=== PATIENT | male | born 1960 | race Caucasian/White ===

== ENCOUNTER 2020-07-25 12:31 | Outpatient (CLI) | payer MEDICARE, SELFPAY ==
--- NOTE | 2020-07-26 13:46 | WPDPFTINT ---
PFT Interpretation This is a pulmonary function test with pre and post-bronchodilator spirometry, plethysmography and diffusing capacity. The test was performed and results interpreted in accordance with the 2019 and 2005 ATS/ERS Task Force guidelines respectively using the Jaswinder/Aleksander reference equations. Findings: Spirometry: There is decreased maximal expiratory airflow at low lung volumes with a concave expiratory flow tracing. The pre-bronchodilator FVC is 3.56 L, 82% predicted. The pre-bronchodilator FEV1 is 2.33 L, 75% predicted. The FEV1:FVC ratio is 66%. The post-bronchodilator FVC is 3.25 L, representing a 9% decrease. The post-bronchodilator FEV1 is 2.50 L, representing a 8% increase. Plethysmography: The total lung capacity is 5.11 L, 82% predicted. The functional residual capacity is 2.17 L, 71% predicted. The residual volume is 1.55 L, 70% predicted. Diffusing capacity: The absolute diffusing capacity is 17.4, 67% predicted. The diffusing capacity corrected for alveolar volume is 3.95, 102% predicted. Impression: There is a mild obstructive abnormality without significant improvement after inhaling a single dose of albuterol. there is a reduction in the residual volume and functional residual capacity with a normal total lung capacity. This is an abnormal but nonspecific lung volume pattern. The absolute diffusing capacity is mildly decreased but normalizes when corrected for alveolar volume. There are no prior studies for comparison.
== END 2020-07-25 12:32 | disposition home or self-care (01) ==
LOC: ANHPFT 12:34
PROVIDERS: PCP Family Medicine; Visit Provider Family Medicine
DX: R06.00 Dyspnea, unspecified (principal); F17.200 Nicotine dependence, unspecified, uncomplicated
CPT/HCPCS: 94060; 94726; 94729

== ENCOUNTER 2021-11-18 01:01 | Day surgery (SDC) | payer MEDICARE, SELFPAY ==
[2021-11-03 13:16] VITALS: BMI 32.0
--- NOTE | 2021-11-17 13:23 | PM.HPGS ---
History of Present Illness History of Present Illness Consent: Risks, benefits, and alternatives have been discussed and questions answered. Patient agrees to proceed with procedure. Chief complaint: hx of colon polyps Narrative: Ren Lees is a 61 year old male referred for colon cancer screening. He has had polyp removed in the past. Review of Systems Review of Systems: All systems reviewed & are unremarkable except as noted in HPI and below PMFSH Past Medical History Medical History Anxiety (~2018) Chronic low back pain CKD (chronic kidney disease) stage 3, GFR 30-59 ml/min COPD (chronic obstructive pulmonary disease) Depression Dyslipidemia Essential (primary) hypertension Fracture of malleoli of both ankles (~1998) Genital warts History of colon polyps Insomnia Mandible fracture (~1975) Moderate episode of recurrent major depressive disorder (~09/2018) Vitamin D deficiency Surgical History Surgical History History of ankle surgery (~1997) left ankle History of mandibular surgery 1970s History of rotator cuff surgery 2003 - Left, bicep tendon removal History of surgery on right wrist - ORIF of wrist fracture History of tracheostomy 1975 Hx of lumbosacral spine surgery 2006 - laminectomy Hx of spinal fusion (~11/2007) L5-S1 Hx of tonsillectomy Family History Family History Mother Hypertension Father Family history of malignant neoplasm of esophagus Other Family history of cardiovascular disease Social History Social History Smoking packs per day: 1.5 Smoking cigarettes per day: 30.0 Years smoked: 40 Smoking pack-years: 60.00 Smoking status: Current every day smoker Tobacco type: cigarettes Second hand tobacco smoke exposure: Yes Additional smoking assessment comments: consumes 1.5 packs of cigarettes daily Alcohol intake: current Drinks per week: 20 Alcohol use details: consumes 6 beers daily Substance use: never Substance use type: does not use Living arrangements: alone Additional occupation/education comments: Disability Gender identity (if verbalized by the patient): Male Spiritual care concerns: No Meds Home Medications and Allergies Home Medications Medication Instructions Recorded Confirmed Type aspirin 81 mg tablet,delayed 81 mg PO DAILY 10/25/19 11/18/21 History release citalopram 40 mg tablet 40 mg PO DAILY 10/25/19 11/18/21 History mirtazapine 30 mg tablet 45 mg PO DAILY 10/25/19 11/18/21 History multivitamin 1 tablet PO DAILY 04/08/20 11/18/21 History clonazepam 0.5 mg tablet 0.5 mg PO DAILY tablet 04/09/21 11/18/21 History lisinopril 10 1 tablet PO DAILY #90 tablet 09/10/21 11/18/21 Rx mg-hydrochlorothiazide 12.5 mg tablet cholecalciferol (vitamin D3) 25 75 mcg PO DAILY cap 10/15/21 11/18/21 History mcg (1,000 unit) capsule fluticasone 250 mcg-salmeterol 50 1 inh INHALATION BID #60 ea 10/15/21 11/18/21 Rx mcg/dose blistr powdr for inhalation trazodone 50 mg tablet 100 mg PO QHS tablet 10/15/21 11/18/21 History gemfibrozil 600 mg tablet 600 mg PO BID #180 tablet 11/09/21 11/18/21 Rx simvastatin 40 mg tablet 40 mg PO QHS #90 tablet 11/09/21 11/18/21 Rx Allergies Allergy/AdvReac Type Severity Reaction Status Date / Time No Known Allergies Allergy Verified 11/18/21 08:07 Exam Resp: Auscultation: clear to auscultation bilaterally Cardio: Rate: regular rate Rhythm: regular rhythm GI: GI Palp: Yes Soft to palpation and No Tenderness to palpation present (GI) Assessment and Plan Assessment and plan (1) Colon cancer screening: Code(s): Z12.11 - Encounter for screening for malignant neoplasm of colon Status: Acute Assessment and Plan: Colonoscopy w
[2021-11-18 08:00] VITALS: BP 147/68; PULSE 102; RESP 20; TEMP 36.3; O2SAT 100; BMI 32.1
[2021-11-18] MEDS: LACTATED RINGERS 1,000 ML 150 ML IV CONT (08:21)
--- NOTE | 2021-11-18 08:27 | WPDANESEPPF ---
Anes - Initial Pre Proc Eval Procedure: Operation Date: 11/18/21 09:30 Proposed Procedures p Screening Colonoscopy - Nader Villaseñor MD Date/Time: 11/18/21 08:27 Surgeon: Nader Villaseñor MD Pre Op Diagnosis: hx of colon polyps Patient Data Age: 61 Gender: M Height: 1.73 m Weight: 95.9 kg Last Vital Signs Temp 36.3 C L 11/18/21 08:00 Pulse 102 H 11/18/21 08:00 Resp 20 11/18/21 08:00 BP 147/68 H 11/18/21 08:00 Pulse Ox 100 11/18/21 08:00 Allergies Allergy/AdvReac Type Severity Reaction Status Date / Time No Known Allergies Allergy Verified 11/18/21 08:07 Home Medications Medication Instructions Recorded Confirmed Type aspirin 81 mg tablet,delayed 81 mg PO DAILY 10/25/19 11/18/21 History release citalopram 40 mg tablet 40 mg PO DAILY 10/25/19 11/18/21 History mirtazapine 30 mg tablet 45 mg PO DAILY 10/25/19 11/18/21 History multivitamin 1 tablet PO DAILY 04/08/20 11/18/21 History clonazepam 0.5 mg tablet 0.5 mg PO DAILY tablet 04/09/21 11/18/21 History lisinopril 10 1 tablet PO DAILY #90 tablet 09/10/21 11/18/21 Rx mg-hydrochlorothiazide 12.5 mg tablet cholecalciferol (vitamin D3) 25 75 mcg PO DAILY cap 10/15/21 11/18/21 History mcg (1,000 unit) capsule fluticasone 250 mcg-salmeterol 50 1 inh INHALATION BID #60 ea 10/15/21 11/18/21 Rx mcg/dose blistr powdr for inhalation trazodone 50 mg tablet 100 mg PO QHS tablet 10/15/21 11/18/21 History gemfibrozil 600 mg tablet 600 mg PO BID #180 tablet 11/09/21 11/18/21 Rx simvastatin 40 mg tablet 40 mg PO QHS #90 tablet 11/09/21 11/18/21 Rx Patient hx anesthesia problems: none Family hx anesthesia problems: none Results Review: All pre-operative results and documents have been reviewed as part of the pre-operative evaluation. [facility] Past Medical History Medical History Anxiety (~2018) Chronic low back pain CKD (chronic kidney disease) stage 3, GFR 30-59 ml/min COPD (chronic obstructive pulmonary disease) Depression Dyslipidemia Essential (primary) hypertension Fracture of malleoli of both ankles (~1998) Genital warts History of colon polyps Insomnia Mandible fracture (~1975) Moderate episode of recurrent major depressive disorder (~09/2018) Vitamin D deficiency Surgical History Surgical History History of ankle surgery (~1997) left ankle History of mandibular surgery 1970s History of rotator cuff surgery 2003 - Left, bicep tendon removal History of surgery on right wrist - ORIF of wrist fracture History of tracheostomy 1975 Hx of lumbosacral spine surgery 2006 - laminectomy Hx of spinal fusion (~11/2007) L5-S1 Hx of tonsillectomy Family History Family History Mother Hypertension Father Family history of malignant neoplasm of esophagus Other Family history of cardiovascular disease Social History Social History Smoking packs per day: 1.5 Smoking cigarettes per day: 30.0 Years smoked: 40 Smoking pack-years: 60.00 Smoking status: Current every day smoker Tobacco type: cigarettes Second hand tobacco smoke exposure: Yes Additional smoking assessment comments: consumes 1.5 packs of cigarettes daily Alcohol intake: current Drinks per week: 20 Alcohol use details: consumes 6 beers daily Substance use: never Substance use type: does not use Living arrangements: alone Additional occupation/education comments: Disability Gender identity (if verbalized by the patient): Male Spiritual care concerns: No Anes - Eval Final PreProcedure Day of Procedure 11/18/21 08:27 Patient weight: obese Heart: regular rate and rhythm Lungs: clear to auscultation and normal air movement Airway: Mallampati scale class II Neurological: jose
[2021-11-18 09:22] VITALS: BP 94/41; PULSE 93; RESP 16; O2SAT 95
[2021-11-18 09:32] VITALS: BP 103/28; PULSE 81; RESP 15; O2SAT 98
--- NOTE | 2021-11-18 09:37 | SUR.OPER ---
Dr. Villaseñor aware that Descending colon polyp was not retrieved, no new orders given.
== END 2021-11-18 09:58 | disposition home or self-care (01) ==
PROVIDERS: PCP Family Medicine; Visit Provider Internal Medicine Gastroenterology
PROC: 0DJD8ZZ Inspection of Lower Intestinal Tract, Via Natural or Artificial Opening Endoscopic (ICD-10-PCS; CPT 45378; principal; 2021-11-18 09:30)
DX: Z12.11 Encounter for screening for malignant neoplasm of colon (principal); D12.3 Benign neoplasm of transverse colon; K63.5 Polyp of colon; I12.9 Hypertensive chronic kidney disease with stage 1 through stage 4 chronic kidney disease, or unspecified chronic kidney disease; N18.30 Chronic kidney disease, stage 3 unspecified; J44.9 Chronic obstructive pulmonary disease, unspecified; E78.5 Hyperlipidemia, unspecified; E55.9 Vitamin D deficiency, unspecified; K64.8 Other hemorrhoids; M54.50 Low back pain, unspecified; G89.29 Other chronic pain; F41.9 Anxiety disorder, unspecified; F32.A Depression, unspecified; F17.210 Nicotine dependence, cigarettes, uncomplicated
CPT/HCPCS: 45385; 45380; 88305; J2704; J7120

== ENCOUNTER 2022-11-23 15:06 | Outpatient (CLI) | payer MEDICARE, SELFPAY ==
[2022-11-24 09:29] LABS: Kit Draw Collected
== END 2022-11-23 15:07 | disposition home or self-care (01) ==
LOC: ANHGOSHLAB 15:08
PROVIDERS: PCP Family Medicine; Visit Provider Nurse Practitioner Family
DX: Z00.00 Encounter for general adult medical examination without abnormal findings (principal); I10 Essential (primary) hypertension
CPT/HCPCS: 36415

== ENCOUNTER → 2022-12-10 13:38 | Outpatient (CLI) | payer MEDICARE, SELFPAY ==
--- NOTE | ~2022-12-10 | CT_ITS ---
CT Scan of the Chest without Contrast: Clinical Indication: Lung cancer screening, smoking history Technique: Contiguous sections were acquired throughout the chest without intravenous contrast. Dose reduction technique was used on this scan by utilizing automated exposure control and iterative recon struction technique. The dose-length product (DLP) was 196.80 mGy-cm. Findings: There is no evidence of any significant mediastinal, hilar or axillary lymphadenopathy. Extensive cor onary artery calcifications are present. There is no evidence of pleural or pericardial effusion. 4 mm right lower lobe pulmonary nodule present (axial image 65). Images through the upper abdomen reveal no abnormalities. Impression: Lung RADS 2: Benign appearance. 12 month follow-up screening CT advised. Reviewed, dictated and finalized at location . Impression: Lung RADS 2: Benign appearance. 12 month follow-up screening CT advised.
== END ==
PROVIDERS: PCP Family Medicine; Visit Provider Nurse Practitioner Family
DX: Z12.2 Encounter for screening for malignant neoplasm of respiratory organs (principal); F17.210 Nicotine dependence, cigarettes, uncomplicated
CPT/HCPCS: 71271

== ENCOUNTER 2023-06-01 15:35 | Outpatient (CLI) | payer MEDICARE, SELFPAY ==
[2023-06-01 19:19] LABS: Basophils Absolute Auto 0.1 K/mm3 (0.0-0.1); Basophils Percent Auto 0.8 % (0.2-1.2); Eosinophils Absolute Auto 0.2 K/mm3 (0-0.3); Eosinophils Percent Auto 2.6 % (0-4.4); Hematocrit 41.6 % (42.0-52.0); Hemoglobin 14.2 g/dL (14.0-18.0); Immature Granulocyte Absolute 0.03 K/mm3 (0.00-0.031); Immature Granulocyte Percent A 0.3 % (0-0.5); Lymphocytes Absolute Auto 2.52 K/mm3 (0.9-3.2); Lymphocytes Percent Auto 27.6 % (18.3-44.2); Mean Corpuscular HGB Conc 34.1 g/dl (32-36); Mean Corpuscular Volume 96.7 fl (80-100); Monocytes Absolute Auto 0.8 K/mm3 (0.1-0.6); Monocytes Percent Auto 8.4 % (2.6-8.5); Neutrophils Absolute Auto 5.5 K/mm3 (1.3-6.7); Neutrophils Percent Auto 60.3 % (45.5-73.1); Platelet Count Result 283 k/mm3 (150-375); Red Cell Distribution Width 12.2 % (11.5-14.5); White Blood Count 9.1 K/mm3 (4.5-10.0)
[2023-06-01 19:30] LABS: Appearance Urine Cloudy (Clear); Bacteria Urine 4+ /hpf; Bilirubin Urine Negative (Negative); Blood Urine Negative (Negative); Color Urine Yellow (Yellow); Glucose Urine UA Negative (Negative); Ketones Urine Negative (Negative); Leukocyte Esterase Ur 3+ LEU/UL (Negative); Need Manual Microscopic Reviewed; Nitrate Urine Positive (Negative); Non Pathogenic Casts 0-2; Protein Urine Negative (Negative); RBC Urine 0-2 /hpf (0-2); Specific Grav Ur 1.011 (1.001-1.035); Squamous Epithelial Cell Urine None seen /hpf (Few); Urobilinogen Urine 0.2 mg/dL (<2.0); WBC Urine 51-100 /hpf; pH Urine 6.5 (5.0-9.0)
[2023-06-01 19:33] LABS: Add Urine Microscopic? YES
[2023-06-01 19:55] LABS: Vitamin D 25 Hydroxy 93.3 ng/mL
[2023-06-01 20:23] LABS: Alanine Aminotransferase 19 U/L (6-50); Alkaline Phosphatase 97 U/L (38-126); Anion Gap 11 mmol/L (8-16); Aspartate Amino Transferase 37 U/L (17-59); Bilirubin,Total 0.6 mg/dL (0.2-1.3); Blood Urea Nitrogen 23 mg/dL (9-20); Calcium 10.7 mg/dL (8.4-10.2); Carbon Dioxide 28 mmol/L (22-30); Chloride 97 mmol/L (98-107); Cholesterol 160 mg/dL (0-200); Estimated Glomerular Filt Rate 41; Glucose 107 mg/dL (65-110); HDL Direct 45 mg/dL; Potassium 4.8 mmol/L (3.4-5.0); Sodium 136 mmol/L (137-145); Triglycerides 114 mg/dL (<150)
[2023-06-01 20:37] LABS: LDL Cholesterol Direct 85 mg/dL
[2023-06-01 21:02] LABS: Prostate Specific Antigen 0.6 ng/mL (< OR = 4.0)
== END 2023-06-01 15:36 | disposition home or self-care (01) ==
LOC: ANHGOSHLAB 15:36
PROVIDERS: PCP Family Medicine; Visit Provider Family Medicine
DX: Z12.5 Encounter for screening for malignant neoplasm of prostate (principal); E55.9 Vitamin D deficiency, unspecified; E78.5 Hyperlipidemia, unspecified; E53.8 Deficiency of other specified B group vitamins; I10 Essential (primary) hypertension; G47.00 Insomnia, unspecified; R30.0 Dysuria
CPT/HCPCS: 36415; 80053; 80061; 81001; 82306; 82607; 84153; 84443; 85025; 87086; G0103

== ENCOUNTER 2023-08-31 11:46 | Outpatient (CLI) | payer OTHER, SELFPAY ==
--- NOTE | ~2023-08-31 | US_ITS ---
Renal-Bladder ultrasound Clinical History: Chronic kidney disease Technique: Real-time sonographic imaging of the kidneys and urinary bladder was performed. Findings: The right kidney measures 10.0 cm in length and the left kidney measures 12.8 cm. There is no hydronephrosis or renal calculus identified. Renal cortical echogenicity is within normal limits. No renal mass lesion is identified. The urinary bladder is moderately distended at the time of this exam. No intraluminal echoes are iden tified. No abnormal wall thickening is seen. Impression: Unremarkable ultrasound of the kidneys and urinary bladder. Reviewed, dictated and finalized at location M. GE NURSE Impression: Unremarkable ultrasound of the kidneys and urinary bladder.
== END 2023-08-31 11:47 ==
PROVIDERS: PCP Internal Medicine Nephrology; Visit Provider Internal Medicine Nephrology
DX: N18.32 Chronic kidney disease, stage 3b (principal)
CPT/HCPCS: 76775

== ENCOUNTER 2024-06-04 16:06 | Outpatient (CLI) | payer OTHER, SELFPAY ==
--- NOTE | ~2024-06-04 | XR_ITS ---
EXAMINATION: XR lumbar spine 2-3V DATE: 06/04/2024 16:19 INDICATION: Low back pain, unspecified. TECHNIQUE: 3 views of lumbar spine including standing views were obtained. COMPARISON: None. FINDINGS: There is 3 degrees dextrocurvature lumbar spine. There is 3 mm anterolisthesis of L4 on L5. There are changes of anterior fusion procedure at L4-L5 with interbody device, healed interbody bone graft, and anterior plate and screws. There is mildly decreased disc height at L4-L5. There is multi level mild facet joint osteoarthritis. IMPRESSION: 1. Mild lumbar spondylosis. 2. Anterior fusion procedure at L5-S1. Reviewed, dictated and finalized at location A. [employer]PER[employer] HEL[employer]
== END 2024-06-04 16:07 | disposition home or self-care (01) ==
LOC: GOSHIMG 16:06
PROVIDERS: PCP Family Medicine; Visit Provider Family Medicine
DX: M43.06 Spondylolysis, lumbar region (principal); Z98.1 Arthrodesis status
CPT/HCPCS: 72100

== ENCOUNTER 2025-01-23 15:10 | Outpatient (CLI) | payer MEDICARE, SELFPAY ==
[2025-01-23 21:33] LABS: Alanine Aminotransferase 14 U/L (6-50); Albumin Level 5.0 g/dL (3.5-5.1); Alkaline Phosphatase 71 U/L (38-126); Anion Gap 13 mmol/L (4-12); Aspartate Amino Transferase 27 U/L (17-59); Bilirubin,Total 0.6 mg/dL (0.2-1.3); Blood Urea Nitrogen 18 mg/dL (9-20); Calcium 10.2 mg/dL (8.4-10.2); Carbon Dioxide 22 mmol/L (22-30); Chloride 100 mmol/L (98-107); Estimated Glomerular Filt Rate 55; Glucose 102 mg/dL (65-110); Potassium 4.2 mmol/L (3.4-5.0); Sodium 135 mmol/L (137-145); Total Protein 7.6 g/dL (6.3-8.2)
[2025-01-23 22:06] LABS: Hemoglobin A1C 5.6 % (<5.7)
== END 2025-01-23 15:11 | disposition home or self-care (01) ==
LOC: ANHGOSHLAB 15:12
PROVIDERS: PCP Family Medicine; Visit Provider Family Medicine
DX: E78.5 Hyperlipidemia, unspecified (principal); N18.31 Chronic kidney disease, stage 3a; I12.9 Hypertensive chronic kidney disease with stage 1 through stage 4 chronic kidney disease, or unspecified chronic kidney disease; R73.03 Prediabetes
CPT/HCPCS: 36415; 80053; 83036